=== PATIENT | male | born 1955 ===

== ENCOUNTER 2024-04-03 13:04 | Outpatient (AMB) | payer MEDICARE, SELFPAY ==
--- NOTE | 2024-04-03 | XR_ITS ---
Examination: Bilateral knees 2 views Right lateral knee left lateral knee 2 views Bilateral axial knees single view TECHNIQUE: Bilateral AP knees standing single view clinical bilateral PA knees standing single view 30 degrees flexion Standing right lateral knee left lateral knee 2 views Bilateral axial knees single view total 5 views Date and time of exam: April 03, 2024 1416 hours INDICATIONS: Bilateral knee pain beginning 4 years ago. FINDINGS: Moderate osteopenia Moderate to advanced right knee tricompartment osteoarthritis, severe narrowing osteoarthritis right patellofemoral joint Moderate to advanced left knee tricompartment osteoarthritis, most severe medial patellofemoral joints No fracture or dislocation IMPRESSION: Significant bilateral tricompartment osteoarthritis
[2024-04-03 13:31] VITALS: BP 94/59; PULSE 79; RESP 18; TEMP 35.7; O2SAT 95; BMI 29.0
--- NOTE | 2024-04-03 13:31 | ORTHONT_ITS ---
Vital signs 04/03/24 13:31 Height 1.8 m Height Method Stated Weight 94.376 kg Weight Measurement Method Standing Scale BMI 29.0 BP 94/59 L Blood Pressure Source Automatic Cuff Blood Pressure Location Right Upper Arm Position Sitting Respiration 18 Pulse 79 Pulse Source Monitor Temp 96.2 F L Temp Source Temporal Artery Scan Pulse Oximetry (%) 95 Oxygen Delivery Method Room Air Med/Allergies Allergies & Medications Allergies No Known Drug Allergies Allergy (Verified 04/03/24 13:32) Medication Reconciliation Unobtainable 04/03/24 [History Confirmed 04/03/24] Exam Exam Patient is in no acute distress and is cooperative with the examination today. Breathing is nonlabored. In no respiratory distress. Bilateral extremities were evaluated and demonstrates sensation intact to light touch. Palpable pedal pulses are present. No significant edema is present. Bilateral hips were examined. The patient has no pain with log roll of the hips. Internal rotation to 30 degrees and external rotation to 30 degrees is painless. Negative FADIR. The left knee was examined. The left knee is in varus alignment. Range of motion from 0-115 degrees. Knee is stable to varus and valgus as well as AP translation with <5mm. Patient has a negative McMurrays. There is no pain with patellofemoral compression and no crepitus noted. The knee is tender to palpation medially. The right knee was also examined. The right knee is in varus alignment. Range of motion from 0-120 degrees. Knee is stable to varus and valgus as well as AP guillen slation with <5mm. Patient has a negative McMurrays. There is no pain with patellofemoral compression and no crepitus noted. The knee is tender to palpation medially. Assessment and Plan Problem List (1) Degenerative arthritis of knee, bilateral: Status: Acute Plan: Patient is 68-year-old male with bilateral knee pain and some conservative treatment. We discussed nonoperative and operative options. He will need to see weightbearing x-rays as he only has nonweightbearing x-rays for his clinic. This did demonstrate osteophytes and severe joint space narrowing. We will have a long discussion at the next visit to discuss surgical treatment versus continued injections Advanced Care Planning Discussion Advance care planning discussed with:: patient Office Procedures GNS Level of Care Nursing/Assessment Patient Status: Initial/New Patient Nursing Assessment/Reassesment: Medication Reconciliation, Update PMH in EMR and Vital Signs Coordination of Care: Complex Care and Chronic Disease 1-5, Education Complex Pt/Fam, Consent,records obtained, informed consent, Results/Orders obtained and Staff clarify orders Special Needs: Language special needs New Patient Charge New Patient Point Assignment: 1094 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 TENDER Level 3 ([id number]) MA Intake Visit Data Collection New Patient or Established: New Patient (never been to [facility]) Reason for Visit:: LEFT KNEE PAIN Seen by Clinical Staff ONLY (RN/MA): No Verbal consent obtained for Telemed visit?: No Central Office Technician Required: Yes PCP or OBGYN visit in last 3 months: Yes Hx Now: No Do You Feel Safe at Home: Yes Authorities Contacted: N/A Questionairres Past Medical History Past Medical History Have you ever been diagnosed with any of the following: Respiratory Problems Smoking: No Smoking Cessation Counseling: No Smoking Exposure: No Tobacco Use: No Subjective Visit Visit for: new patient and knee Immunization / Flu Flu Vaccine in the Last 12 Months: Yes Flu Vaccine Exclusion Criteria: No Exclusion Criteria History of Present Illness Chief complaint: LEFT KNEE PAIN Date of injury / onset of symptoms: 3 YEARS Damien is a pleasant 68-year-old male with bilateral knee pain left worse than right for 4 years. He has had injections in both knees last done 2 years ago. He has tried ibuprofen. He also has sciatica down both legs. His last A1c was 7.8. He brought nonweightbearing x-rays of both knees. He can walk for about 10 minutes Personal History Occupation: RETIRED Red flag PMH: BMI and none (DIABETIC ) BMI Counceling provided: Yes Pain Pain level (0-10): 6 Pain duration: WITH MOVEMENT Pain location: anterior Pain quality: sharp, dull and aching Pain timing: increases with activity Associated signs & symptoms: numbness and weakness Ambulatory data Ambulatory device: none Treatments Number of previous injections: 4 Improvement with previous injections: No Improvement with PT: No Improvement with NSAIDS: yes (IBUPROFEN ) Review of Systems Review of Systems: All systems negative unless otherwise noted in HPI.
== END 2024-04-03 13:53 | disposition home or self-care (01) ==
PROVIDERS: PCP Student in an Organized Health Care Education/Training Program; Referring Provider Student in an Organized Health Care Education/Training Program; Supervising Provider Orthopaedic Surgery Adult Reconstructive Orthopaedic Surgery; Visit Provider Orthopaedic Surgery Adult Reconstructive Orthopaedic Surgery
DX: M17.0 Bilateral primary osteoarthritis of knee (principal); M25.562 Pain in left knee; M25.561 Pain in right knee; M54.30 Sciatica, unspecified side
CPT/HCPCS: 73564; 99203; G0463

== ENCOUNTER 2024-04-20 11:03 | Outpatient (AMB) | payer MEDICARE, MEDICAID, SELFPAY ==
[2024-04-20 11:22] VITALS: BP 103/65; PULSE 76; RESP 18; TEMP 36.1; O2SAT 97; BMI 29.7
--- NOTE | 2024-04-20 11:22 | PD.ORTHCLVIS ---
Vital signs 04/20/24 11:22 Height 1.8 m Height Method Stated Weight 96.275 kg Weight Measurement Method Standing Scale BMI 29.7 BP 103/65 Blood Pressure Source Automatic Cuff Blood Pressure Location Right Upper Arm Position Sitting Respiration 18 Pulse 76 Pulse Source Monitor Temp 97.0 F Temp Source Temporal Artery Scan Pulse Oximetry (%) 97 Oxygen Delivery Method Room Air Med/Allergies Allergies & Medications Allergies No Known Drug Allergies Allergy (Verified 04/20/24 11:22) Medication Reconciliation Unobtainable 04/03/24 [History Confirmed 04/20/24] Exam Exam Patient is in no acute distress and is cooperative with the examination today. Breathing is nonlabored. In no respiratory distress. Bilateral extremities were evaluated and demonstrates sensation intact to light touch. Palpable pedal pulses are present. No significant edema is present. Bilateral hips were examined. The patient has no pain with log roll of the hips. Internal rotation to 30 degrees and external rotation to 30 degrees is painless. Negative FADIR. The left knee was examined. The left knee is in varus alignment. Range of motion from 0-115 degrees. Knee is stable to varus and valgus as well as AP translation with <5mm. Patient has a negative McMurrays. There is no pain with patellofemoral compression and no crepitus noted. The knee is tender to palpation medially. The right knee was also examined. The right knee is in varus alignment. Range of motion from 0-120 degrees. Knee is stable to varus and valgus as well as AP translation with <5mm. Patient has a negative McMurrays. There is no pain with patellofemoral compression and no crepitus noted. The knee is tender to palpation medially. Bilateral knee injections demonstrates joint space loss medially and osteophytes Assessment and Plan Problem List (1) Degenerative arthritis of knee, bilateral: Status: Acute Plan: Patient is 68-year-old male with bilateral knee pain and who has tried some conservative treatment. We discussed nonoperative and operative options. HHe would like to continue with conservative management at this time. Advanced Care Planning Discussion Advance care planning discussed with:: patient Office Procedures GNS Level of Care Nursing/Assessment Patient Status: Established Patient Nursing Assessment/Reassesment: Medication Reconciliation, Update PMH in EMR and Vital Signs Coordination of Care: Complex Care and Chronic Disease 1-5, Education Complex Pt/Fam, Consent,records obtained, informed consent, Results/Orders obtained and Staff clarify orders Special Needs: Language special needs Established Patient Charge Established Patient Point Assignment: 95 Established Patient Point Charge: EP Level 3 (80-115) MA Intake Visit Data Collection New Patient or Established: Established Patient (seen at [facility] within 3 years) Reason for Visit:: F/U XRAYS Seen by Clinical Staff ONLY (RN/MA): No Verbal consent obtained for Telemed visit?: No 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 Machine 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 Required: Yes PCP or OBGYN visit in last 3 months: Yes Hx Now: No Do You Feel Safe at Home: Yes Authorities Contacted: N/A Questionairres Past Medical History Past Medical History Have you ever been diagnosed with any of the following: Respiratory Problems Smoking: No Smoking Cessation Counseling: No Smoking Exposure: No Tobacco Use: No Subjective Visit Visit for: follow up visit and x-rays Immunization / Flu Flu Vaccine in the Last 12 Months: No Flu Vaccine Exclusion Criteria: No Exclusion Criteria History of Present Illness Chief complaint: F/U XRAYS Date of injury / onset of symptoms: 3 YEARS Damien is a pleasant 68-year-old male with bilateral knee pain left worse than right for 4 years. He has had injections in both knees last done 2 years ago. He has tried ibuprofen. He also has sciatica down both legs. His last A1c was 7.8. He brought nonweightbearing x-rays of both knees. He can walk for about 10 minutes. He reports the pain is still tolerable and does not want injections today or surgery at this point in time Personal History Occupation: RETIRED Red flag PMH: BMI and none (DIABETIC ) BMI Counceling provided: Yes Pain Pain level (0-10): 0 Pain duration: WITH MOVEMENT Pain location: anterior Pain quality: sharp, dull and aching Pain timing: increases with activity Associated signs & symptoms: none Ambulatory data Ambulatory device: none Treatments Number of previous injections: 4 Improvement with previous injections: No Improvement with PT: No Improvement with NSAIDS: no Review of Systems Review of Systems: All systems negative unless otherwise noted in HPI.
== END 2024-04-20 11:40 | disposition home or self-care (01) ==
LOC: HODSRG 11:03
PROVIDERS: PCP Student in an Organized Health Care Education/Training Program; Referring Provider Student in an Organized Health Care Education/Training Program; Supervising Provider Orthopaedic Surgery Adult Reconstructive Orthopaedic Surgery; Visit Provider Orthopaedic Surgery Adult Reconstructive Orthopaedic Surgery
DX: M17.0 Bilateral primary osteoarthritis of knee (principal)
CPT/HCPCS: 99213; G0463